=== PATIENT | female | born 1965 | race Caucasian/White ===

== ENCOUNTER 2017-11-30 08:57 | Inpatient (IN) | payer OTHER ==
[~2017-11-30] VITALS: Ht 167.6 cm; Wt 72.6 kg
[2017-11-30 09:22] LABS: BASOPHILS # (AUTO) 0.1 /CMM (0.0-0.2); BASOPHILS % (AUTO) 0.7 % (0.0-2.0); EOSINOPHILS # (AUTO) 0.1 /CMM (0.0-0.7); EOSINOPHILS % (AUTO) 1.6 % (0.0-6.0); HEMATOCRIT 42 % (33-45); HEMOGLOBIN 14.3 g/dL (11.5-14.8); LYMPHOCYTES # (AUTO) 2.1 /CMM (0.8-4.8); LYMPHOCYTES % (AUTO) 23.9 % (20.0-44.0); MEAN CORPUSCULAR HEMOGLOBIN 31 PG (26.0-33.0); MEAN CORPUSCULAR HGB CONC 34 g/dl (31.0-36.0); MEAN CORPUSCULAR VOLUME 92 fL (82-100); MONOCYTES # (AUTO) 0.4 /CMM (0.1-1.30); MONOCYTES % (AUTO) 4.3 % (2.0-12.0); NEUTROPHILS # (AUTO) 6.1 /CMM (1.8-8.9); NEUTROPHILS % (AUTO) 69.5 % (43.0-81.0); PLATELET COUNT (AUTO) 168 /CMM (150-450); RDW COEFFICIENT OF VARIATION 11.6 (11.5-15.0); RED BLOOD CELL COUNT(AUTO) 4.57 MIL/uL (4.0-5.2); WHITE BLOOD COUNT (AUTO) 8.8 K/uL (4.3-11.0)
[2017-11-30 09:30] LABS: CALCIUM, SERUM 8.6 mg/dL (8.5-10.1); CARBON DIOXIDE 26 mmol/L (21-32); CHLORIDE 105 mmol/L (98-107); CREATININE 0.7 mg/dL (0.6-1.3); GLUCOSE 112 mg/dL (74-106); POTASSIUM 3.8 mmol/L (3.5-5.1); SODIUM SERUM 139 mmol/L (136-145); UREA NITROGEN, BLOOD 15 mg/dL (7-18)
[2017-11-30 09:33] LABS: INR 0.94 (0.85-1.15)
[2017-11-30 09:36] LABS: ALANINE AMINOTRANSFERASE 27 U/L (12-78); ALBUMIN 3.1 g/dL (3.4-5.0); ALKALINE PHOSPHATASE 99 U/L (46-116); ASPARTATE AMINOTRANSFERASE 17 U/L (15-37); BILIRUBIN,DIRECT 0.1 mg/dL (0.0-0.2); BILIRUBIN,TOTAL 0.4 mg/dL (0.2-1.0); TOTAL PROTEIN, SERUM 6.9 g/dL (6.4-8.2)
[2017-11-30 09:38] LABS: TROPONIN I < 0.017 ng/mL (0.00-0.056)
[2017-11-30] MEDS ORDERED: ONDANSETRON HCL/PF - ER 4 MG/2 ML VIAL IV ONE (13:30)
[2017-11-30] MEDS ORDERED: METOPROLOL TARTRATE INJ 5 MG/5 ML AMPUL IV ONE (13:30)
[2017-11-30] MEDS ORDERED: NITROGLYCERIN PACKET 1 GM PACKET TOP ONE (13:30)
[2017-11-30] MEDS ORDERED: CLOPIDOGREL BISULFATE 75 MG TABLET PO ONE (13:30)
[2017-11-30] MEDS ORDERED: NITROGLYCERIN PACKET 1 GM PACKET ONE (13:39)
[2017-11-30] MEDS ORDERED: ONDANSETRON HCL/PF 4 MG/2 ML VIAL ONE (13:39)
[2017-11-30] MEDS ORDERED: METOPROLOL TARTRATE INJ 5 MG/5 ML AMPUL ONE (13:39)
[2017-11-30] MEDS ORDERED: CLOPIDOGREL BISULFATE 75 MG TABLET ONE (13:39)
[2017-11-30] MEDS ORDERED: NITR0.4T48 SL (14:03)
[2017-11-30] MEDS ORDERED: MECL12.582 PO (14:03)
[2017-11-30] MEDS ORDERED: BUSP5TAB3 PO (14:03)
[2017-11-30] MEDS ORDERED: LORA0.5T PO (14:03)
[2017-11-30] MEDS ORDERED: SIMV20TA6 PO (14:03)
[2017-11-30] MEDS ORDERED: SERT100T PO (14:03)
[2017-11-30] MEDS ORDERED: CLON0.1T PO (14:03)
[2017-11-30] MEDS ORDERED: METO25TA20 PO (14:03)
[2017-11-30] MEDS ORDERED: BACL10TA PO (14:03)
[2017-11-30] MEDS ORDERED: CHOL100044 PO (14:03)
[2017-11-30 15:30] VITALS: BP 145/83
[2017-11-30 15:39] VITALS: BP 145/83
[2017-11-30] MEDS ORDERED: BACLOFEN (10 MG) 10 MG TABLET PO PRN (17:00)
[2017-11-30] MEDS ORDERED: Z GUARD REMEDY 2 OZ OINT TP PRN (17:00)
[2017-11-30] MEDS ORDERED: LORAZEPAM 0.5 MG TABLET PO PRN (17:00)
[2017-11-30] MEDS ORDERED: ONDANSETRON HCL/PF 4 MG/2 ML VIAL IVP PRN (17:00)
[2017-11-30] MEDS ORDERED: ACETAMINOPHEN 325 MG TABLET PO PRN (17:00)
[2017-11-30] MEDS ORDERED: CLONIDINE HCL 0.1 MG TABLET PO PRN (17:00)
[2017-11-30] MEDS ORDERED: POTASSIUM CHLORIDE 20 MEQ TAB.PRT.SR PO ONE (17:00)
[2017-11-30] MEDS ORDERED: ZOLPIDEM TARTRATE 5 MG TABLET PO PRN (17:00)
[2017-11-30] MEDS ORDERED: MORPHINE SULFATE INJ 2 MG/ML DISP.SYRIN IV PRN (17:00)
[2017-11-30] MEDS: METOPROLOL TARTRATE 25 MG TABLET PO SCH (17:16)
[2017-11-30] MEDS: SIMVASTATIN 20 MG TABLET PO SCH (17:16)
[2017-11-30] MEDS: FUROSEMIDE 40 MG/4 ML VIAL IV SCH ×2 (17:16→20:39)
[2017-11-30] MEDS: busPIRone 5 MG TABLET PO SCH (17:16)
[2017-11-30] MEDS: ENOXAPARIN SODIUM 40 MG/0.4 ML DISP.SYRIN SQ SCH (17:17)
[2017-11-30] MEDS ORDERED: ALPRAZOLAM 0.25 MG TABLET PO PRN (19:00)
[2017-11-30 20:00] VITALS: BP 116/75
[2017-12-01 00:37] VITALS: BP 120/75
[2017-12-01 04:00] VITALS: BP 115/70
[2017-12-01 07:01] VITALS: BP 119/78
[2017-12-01 07:14] LABS: BASOPHILS % (AUTO) 0.5 % (0.0-2.0); EOSINOPHILS # (AUTO) 0.2 /CMM (0.0-0.7); EOSINOPHILS % (AUTO) 2.3 % (0.0-6.0); HEMATOCRIT 44 % (33-45); HEMOGLOBIN 15.4 g/dL (11.5-14.8); LYMPHOCYTES # (AUTO) 2.8 /CMM (0.8-4.8); LYMPHOCYTES % (AUTO) 30.8 % (20.0-44.0); MEAN CORPUSCULAR HEMOGLOBIN 32 PG (26.0-33.0); MEAN CORPUSCULAR HGB CONC 35 g/dl (31.0-36.0); MEAN CORPUSCULAR VOLUME 93 fL (82-100); MONOCYTES # (AUTO) 0.7 /CMM (0.1-1.30); MONOCYTES % (AUTO) 7.4 % (2.0-12.0); NEUTROPHILS # (AUTO) 5.4 /CMM (1.8-8.9); PLATELET COUNT (AUTO) 189 /CMM (150-450); RDW COEFFICIENT OF VARIATION 12.9 (11.5-15.0); RED BLOOD CELL COUNT(AUTO) 4.81 MIL/uL (4.0-5.2); WHITE BLOOD COUNT (AUTO) 9.2 K/uL (4.3-11.0)
[2017-12-01 07:21] LABS: ALBUMIN 3.6 g/dL (3.4-5.0); BILIRUBIN,TOTAL 0.4 mg/dL (0.2-1.0); CALCIUM, SERUM 9.1 mg/dL (8.5-10.1); CREATININE 0.9 mg/dL (0.6-1.3); PHOSPHORUS 5.5 mg/dL (2.5-4.9); POTASSIUM 4.3 mmol/L (3.5-5.1); TOTAL PROTEIN, SERUM 7.7 g/dL (6.4-8.2)
[2017-12-01 07:29] LABS: THYROID STIMULATING HORMONE 2.944 uIU/mL (0.358-3.74)
[2017-12-01] MEDS ORDERED: ASPIRIN EC 81 MG TABLET.DR PO SCH (09:00)
[2017-12-01] MEDS: AMLODIPINE BESYLATE 10 MG TABLET PO SCH (09:00)
[2017-12-01] MEDS: METOPROLOL TARTRATE 25 MG TABLET PO SCH ×2 (09:00→17:21)
[2017-12-01] MEDS: VALSARTAN 80 MG TABLET PO SCH (09:00)
[2017-12-01] MEDS: SERTRALINE HCL 50 MG TABLET PO SCH (09:09)
[2017-12-01] MEDS: CHOLECALCIFEROL 1,000 UNIT TABLET (VIT D3) PO SCH (09:09)
[2017-12-01] MEDS: busPIRone 5 MG TABLET PO SCH ×2 (09:09→17:19)
[2017-12-01] MEDS: NITROGLYCERIN 0.4 MG/TAB BOTTLE SL PRN (11:12)
[2017-12-01 16:00] VITALS: BP 117/64
[2017-12-01] MEDS: SIMVASTATIN 20 MG TABLET PO SCH (17:54)
[2017-12-01 20:00] VITALS: BP 130/74
[2017-12-01] MEDS ORDERED: AMLODIPINE BESYLATE 5 MG TABLET PO ONE (21:00)
[2017-12-01] MEDS ORDERED: VALSARTAN 80 MG TABLET PO ONE (21:00)
[2017-12-01] MEDS: DOXAZOSIN MESYLATE (1 MG) 1 MG TABLET PO SCH (22:00)
[2017-12-01] MEDS: ENOXAPARIN SODIUM 40 MG/0.4 ML DISP.SYRIN SQ SCH (22:23)
[2017-12-02] VITALS: BP 114/66
[2017-12-02 04:00] VITALS: BP_SYST 109; BP_SYST 119; BP_DIAS 56; BP_DIAS 72
[2017-12-02] MEDS: NITROGLYCERIN 0.4 MG/TAB BOTTLE SL PRN (06:43)
[2017-12-02 07:36] LABS: BASOPHILS % (AUTO) 0.4 % (0.0-2.0); EOSINOPHILS # (AUTO) 0.2 /CMM (0.0-0.7); EOSINOPHILS % (AUTO) 2.8 % (0.0-6.0); HEMATOCRIT 42 % (33-45); HEMOGLOBIN 14.5 g/dL (11.5-14.8); LYMPHOCYTES # (AUTO) 3.3 /CMM (0.8-4.8); LYMPHOCYTES % (AUTO) 42.4 % (20.0-44.0); MEAN CORPUSCULAR HEMOGLOBIN 32 PG (26.0-33.0); MEAN CORPUSCULAR HGB CONC 35 g/dl (31.0-36.0); MEAN CORPUSCULAR VOLUME 92 fL (82-100); MONOCYTES # (AUTO) 0.6 /CMM (0.1-1.30); MONOCYTES % (AUTO) 7.4 % (2.0-12.0); NEUTROPHILS # (AUTO) 3.7 /CMM (1.8-8.9); PLATELET COUNT (AUTO) 160 /CMM (150-450); RDW COEFFICIENT OF VARIATION 12.8 (11.5-15.0); RED BLOOD CELL COUNT(AUTO) 4.53 MIL/uL (4.0-5.2); WHITE BLOOD COUNT (AUTO) 7.8 K/uL (4.3-11.0)
[2017-12-02] MEDS: METOPROLOL TARTRATE 25 MG TABLET PO SCH ×3 (07:44→17:00)
[2017-12-02 07:49] LABS: CALCIUM, SERUM 8.8 mg/dL (8.5-10.1); CREATININE 0.6 mg/dL (0.6-1.3); MAGNESIUM 1.8 mg/dL (1.8-2.4); PHOSPHORUS 3.8 mg/dL (2.5-4.9); POTASSIUM 3.9 mmol/L (3.5-5.1)
[2017-12-02 07:55] LABS: INR 0.98 (0.87-1.13)
[2017-12-02 08:00] VITALS: BP 112/73
[2017-12-02] MEDS: busPIRone 5 MG TABLET PO SCH ×2 (09:02→17:10)
[2017-12-02] MEDS: SERTRALINE HCL 50 MG TABLET PO SCH (09:02)
[2017-12-02] MEDS: VALSARTAN 80 MG TABLET PO SCH (09:03)
[2017-12-02] MEDS: AMLODIPINE BESYLATE 10 MG TABLET PO SCH (09:03)
[2017-12-02] MEDS: CHOLECALCIFEROL 1,000 UNIT TABLET (VIT D3) PO SCH (09:03)
[2017-12-02] MEDS ORDERED: CT SWABBABLE VALVE TRANS SET 1 EA INFUS.SET MC ONE (09:14)
[2017-12-02] MEDS ORDERED: IOHEXOL-350 100 ML VIAL IV ONE (09:14)
[2017-12-02] MEDS ORDERED: IV NS 0.9% 250 ML IV ONE (09:15)
[2017-12-02] MEDS ORDERED: NITROGLYCERIN 0.4 MG/TAB BOTTLE ONE (09:15)
[2017-12-02 16:00] VITALS: BP 107/55
[2017-12-02] MEDS: SIMVASTATIN 20 MG TABLET PO SCH (18:06)
[2017-12-02 20:00] VITALS: BP 110/60
[2017-12-02] MEDS: ENOXAPARIN SODIUM 40 MG/0.4 ML DISP.SYRIN SQ SCH (21:00)
[2017-12-02] MEDS: DOXAZOSIN MESYLATE (1 MG) 1 MG TABLET PO SCH (22:00)
[2017-12-03] MEDS: METOPROLOL TARTRATE 25 MG TABLET PO SCH (09:00)
[2017-12-03] MEDS: CHOLECALCIFEROL 1,000 UNIT TABLET (VIT D3) PO SCH (09:00)
[2017-12-03] MEDS: VALSARTAN 80 MG TABLET PO SCH (09:01)
[2017-12-03] MEDS: AMLODIPINE BESYLATE 10 MG TABLET PO SCH (09:01)
[2017-12-03] MEDS: busPIRone 5 MG TABLET PO SCH (09:01)
[2017-12-03] MEDS: SERTRALINE HCL 50 MG TABLET PO SCH (09:01)
[2017-12-03 09:06] VITALS: BP 127/81
[2017-12-03] MEDS ORDERED: AMLO10TA2 PO (09:45)
[2017-12-03] MEDS ORDERED: METO25TA20 PO (09:45)
[2017-12-03] MEDS ORDERED: VALS80TA2 PO (09:45)
[2017-12-03] MEDS ORDERED: DOXA1TAB17 PO (09:45)
== END 2017-12-03 10:55 | disposition home or self-care (01) | DRG 190 ==
LOC: ER 09:01 → TELE 14:44 → MED 12-02 11:44
PROVIDERS: ADMIT Nurse Practitioner Acute Care; ATTEND Nurse Practitioner Acute Care
DX: I21.A1 Myocardial infarction type 2 (principal); E87.5 Hyperkalemia; I10 Essential (primary) hypertension; F32.9 Major depressive disorder, single episode, unspecified; E78.5 Hyperlipidemia, unspecified; Z88.6 Allergy status to analgesic agent; Z88.8 Allergy status to other drugs, medicaments and biological substances; F29 Unspecified psychosis not due to a substance or known physiological condition; M62.838 Other muscle spasm; Z79.899 Other long term (current) drug therapy; F17.200 Nicotine dependence, unspecified, uncomplicated; F41.9 Anxiety disorder, unspecified
CPT/HCPCS: 36415; 70450-TC; 71045-TC; 75574; 80048-TC; 80053-TC; 80061-TC; 80076-TC; 83735-TC; 84100-TC; 84443-TC; 84484-TC; 85025-TC; 85610-TC; 85730-TC; 87081-TC; 93307-TC; A4606; J1650; J1940; J2405; J3490; J7050; Q9967; Z7610

== ENCOUNTER 2020-07-03 19:10 | Emergency (ER) | payer MEDICAID, OTHER ==
[~2020-07-03] VITALS: Ht 167.6 cm; Wt 70.8 kg
[~2020-07-03 19:10] MED LIST: AMLO10TA7 PO; BACL10TA PO; BUSP5TAB3 PO; CHOL100044 PO; DOXA1TAB17 PO; LORA0.5T PO; MECL-182 PO; METO25TA20 PO; NITR0.4T48 SL; SERT100T PO; VALS80TA2 PO
[2020-07-03] MEDS ORDERED: LORAZEPAM 1 MG TABLET ONE (19:45)
--- NOTE | 2020-07-03 19:45 | NUR ---
PT AAOX4. BIBS. C/O L CHEST PAIN RADIATING TO BACK. PT APPEARS TO BE ANXIOUS. VSS. NO ACUTE DISTRESS NOTED.
[2020-07-03] MEDS ORDERED: LORAZEPAM 1 MG TABLET PO ONE (20:00)
[2020-07-03 20:09] LABS: BASOPHILS # (AUTO) 0.1 /CMM (0.0-0.2); EOSINOPHILS % (AUTO) 2.2 % (0.0-6.0); HEMATOCRIT 42 % (33-45); HEMOGLOBIN 14.5 g/dL (11.5-14.8); LYMPHOCYTES # (AUTO) 2.7 /CMM (0.8-4.8); LYMPHOCYTES % (AUTO) 27.3 % (20.0-44.0); MEAN CORPUSCULAR HGB CONC 35 g/dl (31.0-36.0); MEAN CORPUSCULAR VOLUME 94 fL (82-100); MONOCYTES # (AUTO) 0.6 /CMM (0.1-1.30); MONOCYTES % (AUTO) 6.2 % (2.0-12.0); NEUTROPHILS # (AUTO) 6.2 /CMM (1.8-8.9); NEUTROPHILS % (AUTO) 63.3 % (43.0-81.0); PLATELET COUNT (AUTO) 174 /CMM (150-450); WHITE BLOOD COUNT (AUTO) 9.7 K/uL (4.3-11.0)
[2020-07-03 20:14] LABS: CALCIUM, SERUM 8.7 mg/dL (8.5-10.1); CARBON DIOXIDE 27 mmol/L (21-32); CHLORIDE 106 mmol/L (98-107); CREATININE 1.1 mg/dL (0.6-1.3); GLUCOSE 113 mg/dL (74-106); POTASSIUM 3.7 mmol/L (3.5-5.1); SODIUM SERUM 141 mmol/L (136-145); UREA NITROGEN, BLOOD 10 mg/dL (7-18)
[2020-07-03 23:32] VITALS: BP 121/69
--- NOTE | 2020-07-03 23:32 | NUR ---
Patient discharged to home in stable condition. Written and verbal after care instructions given. Patient verbalizes understanding of instruction. Pt denies CP. Pt ambulated out of E.D.
== END 2020-07-03 23:33 | disposition home or self-care (01) ==
LOC: ER 19:13
DX: R07.89 Other chest pain (principal); I10 Essential (primary) hypertension; E78.00 Pure hypercholesterolemia, unspecified; Z88.6 Allergy status to analgesic agent; Z79.899 Other long term (current) drug therapy
CPT/HCPCS: 36415; 71045-TC; 80048-TC; 84484-TC; 85025-TC